=== PATIENT | male | born 1995 | race African-American/Black ===

== ENCOUNTER 2018-12-27 19:05 | Emergency (ER) | payer BC ==
[~2018-12-27] VITALS: Ht 188 cm; Wt 97.5 kg
[~2018-12-27 19:05] MED LIST: BACTRIM DS TAB1 EACH PO; CLEOCIN HCL150 MG PO; NOHOMEMEDICATIONS
[2018-12-27] MEDS ORDERED: IBUPROFEN 800800 MG PO (20:51)
[2018-12-27 21:06] VITALS: BP 138/70
== END 2018-12-27 21:08 | disposition home or self-care (01) ==
LOC: M.ERS 19:05
DX: S80.212A Abrasion, left knee, initial encounter (principal); Z88.1 Allergy status to other antibiotic agents; Z88.2 Allergy status to sulfonamides; Z88.5 Allergy status to narcotic agent; Z88.8 Allergy status to other drugs, medicaments and biological substances; W01.0XXA Fall on same level from slipping, tripping and stumbling without subsequent striking against object, initial encounter; Y93.89 Activity, other specified; Y92.89 Other specified places as the place of occurrence of the external cause; Y99.8 Other external cause status